=== PATIENT | male | born 1980 | race Caucasian/White ===

== ENCOUNTER 2016-05-01 14:54 | Emergency (ER) | payer MEDICAID ==
[~2016-05-01] VITALS: Ht 165.1 cm; Wt 89.4 kg
[2016-05-01] MEDS ORDERED: BACTRIM DS1 TAB PO (16:31)
[2016-05-01] MEDS ORDERED: GABAPENTIN600 M1 PO (16:32)
[2016-05-01] MEDS ORDERED: METFORMIN500 M1 PO (16:32)
[2016-05-01] MEDS ORDERED: ASPIR 8181 MG PO (16:32)
[2016-05-01] MEDS ORDERED: FERROUS GLUCON324 M2 PO (16:32)
[2016-05-01] MEDS ORDERED: TAMSULOSIN HYD0.4 M1 PO (16:33)
[2016-05-01] MEDS ORDERED: PANTOPRAZOLE SO40 M1 PO (16:33)
[2016-05-01] MEDS ORDERED: SIMVASTATIN40 M1 PO (16:33)
[2016-05-01] MEDS ORDERED: NATURE'S BLEND F1 MG PO (16:33)
[2016-05-01 17:14] LABS: BASOPHIL % 1.6 % (0-2); PLATELET COUNT 314 x10^3mcL (130-400); RED CELL DISTRIBUTION WIDTH 14.6 % (11.5-14.5)
[2016-05-01 17:20] LABS: CALCIUM 8.1 mg/dL (8.5-10.1); CARBON DIOXIDE 27.5 mmol/L (21-32); CHLORIDE SERUM 99 mmol/L (98-107); CREATININE SERUM 0.9 mg/dL (0.7-1.3); GFR1 > 60 mL/min; GLUCOSE SERUM 103 mg/dL (74-106); POTASSIUM SERUM 3.7 mmol/L (3.5-5.1); SODIUM SERUM 134 mmol/L (136-145)
[2016-05-01 17:25] LABS: ALKALINE PHOSPHATASE 215 U/L (46-116); ALT/SGPT 139 U/L (16-63); AMYLASE 56 U/L (25-115); AST/SGOT 49 U/L (15-37); BILIRUBIN TOTAL 0.81 mg/dL (0.20-1.00); LIPASE 266 IU/L (73-393); TOTAL PROTEIN, SERUM 7.5 g/dL (6.4-8.2)
[2016-05-01 17:26] LABS: ALBUMIN 3.1 g/dL (3.4-5.0)
[2016-05-01 17:58] LABS: microscopic required? NO
[2016-05-01 18:05] LABS: UA SPECIFIC GRAVITY <=1.005 (1.005-1.035); urine erythrocyte NEGATIVE (NEGATIVE)
[2016-05-01 19:07] VITALS: BP 131/72
== END 2016-05-01 19:07 | disposition home or self-care (01) ==
LOC: ED 14:54
PROVIDERS: Emergency Medicine
DX: L50.0 Allergic urticaria (principal); E46 Unspecified protein-calorie malnutrition; R94.5 Abnormal results of liver function studies
CPT/HCPCS: 83880; 87804; J1200; J2930; J7030

== ENCOUNTER 2017-04-25 09:50 | Emergency (ER) | payer SELFPAY ==
[~2017-04-25] VITALS: Ht 162.6 cm; Wt 89.8 kg
[~2017-04-25 09:50] MED LIST: ASPIR 8181 MG PO; BACTRIM DS1 TAB PO; FERROUS GLUCON324 M2 PO; GABAPENTIN600 M1 PO; METFORMIN500 M1 PO; NATURE'S BLEND F1 MG PO; PANTOPRAZOLE SO40 M1 PO; SIMVASTATIN40 M1 PO; TAMSULOSIN HYD0.4 M1 PO
[2017-04-25 12:33] VITALS: BP 122/68
== END 2017-04-25 12:33 | disposition home or self-care (01) ==
LOC: ED 09:50
DX: H66.91 Otitis media, unspecified, right ear (principal); M79.602 Pain in left arm; G58.8 Other specified mononeuropathies; M54.2 Cervicalgia; V49.9XXA Car occupant (driver) (passenger) injured in unspecified traffic accident, initial encounter; Y93.89 Activity, other specified; Y92.89 Other specified places as the place of occurrence of the external cause; Y99.8 Other external cause status

== ENCOUNTER 2018-06-21 01:00 | Emergency (ER) | payer OTHER | END 2018-06-21 02:06 | disposition home or self-care (01) | LOC: ED 01:00 ==